=== PATIENT | female | born 1985 | race African-American/Black ===

== ENCOUNTER 2016-10-04 07:18 | Observation (INO) | payer OTHER ==
--- NOTE | ~2016-10-04 | HP ---
Unit #: [id number] #: [id number] Patient: ZELALEM BETTENCOURT [id number] [facility] [address]. [place], [place] [address] [id number] I MR#: [id number] NAME: ZELALEM BETTENCOURT ROOM: 239 Age: 31 Sex: F Admission Date: 10/04/2016 : 1985 Attending Physician: Delilah Page M.D. Primary Care Physician: No Primary Care Physician HISTORY AND PHYSICAL CHIEF COMPLAINT Blood in stool. HISTORY OF PRESENT ILLNESS The patient is a 31-year-old female with a past medical history of alcohol abuse, who presented to [facility] for evaluation of the above. The patient states that she has had a one to two-week history of blood in the stool. She states that she has had loose stool. She states that the stool has been somewhat black with blood "in the toilet and on the toilet paper." She denies any abdominal pain. No vomiting. No urinary symptoms. She has not had any fever. She reports an occasional cough. In the emergency department initial pulse and blood pressure were 92 and 131/94 respectively. She was noted to be hemoccult positive. Initial hemoglobin was 12.8. She received 1 liter of normal saline and hemoglobin had dropped to 11. She was sent to [facility] for admission. Of note, the patient has never had endoscopy. PAST MEDICAL HISTORY No hospitalizations. PAST SURGICAL HISTORY . SOCIAL HISTORY The patient lives with her mother and two kids. She states that she used to drink daily about a month ago, but now currently only drinks on the weekends. However, her last drink was yesterday and consisted of four to five shots. Blood alcohol level was 176 this morning at [facility]. She smokes a pack of cigarettes daily. She denies illicit drug use. 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 FAMILY HISTORY Notable for her mother having endstage renal disease on dialysis. She is not sure of her dad's medical issues. He is . ALLERGIES No known drug allergies. HOME MEDICATIONS None. Unit #: [id number] #: [id number] Patient: ZELALEM BETTENCOURT REVIEW OF SYSTEMS A complete review of systems is negative except as indicated in the history of present illness. PHYSICAL EXAMINATION GENERAL: The patient is an female who is awake and alert, in no acute distress. VITALS: Temperature 98.2, pulse 92, respiratory rate 18, blood pressure 131/94, oxygen saturation 100% on room air. HEENT: The head is atraumatic. Mucous membranes are moist. NECK: Supple. Trachea midline. LUNGS: Clear to auscultation bilaterally with no increased work of breathing. HEART: Regular rate and rhythm. ABDOMEN: Soft and nontender with bowel sounds present in all four quadrants. RECTAL: Hemoccult positive per emergency room documentation. EXTREMITIES: Nontender with no pedal edema. NEUROLOGIC: The patient is awake and alert. She follows commands. PSYCHIATRIC: Mood and affect are normal. The patient is cooperative. SKIN: Skin of examined areas is warm and dry. DIAGNOSTIC STUDIES IMAGING: CT of the abdomen and pelvis showed no acute abnormality. Hepatomegaly with severe diffuse hepatic steatosis was noted. LABORATORY: Urine test was negative. Initial CBC notable for hemoglobin of 12.8. Repeat hemoglobin was 11. MCV is 101.9. RDW is 16. Urinalysis notable for 1+ protein, 3+ blood with 5-10 red blood cells, 1+ bacteria, many squamous cells, trichomonas was also present. CMP notable for potassium 2.8, calcium 8.1, AST and ALT 140 and 96 respectively. INR 1. ASSESSMENT The patient is a 31-year-old female with 1. GI bleed. The patient received 40 mg of Protonix in the emergency department at [facility]. 2. Macrocytic anemia. The patient's hemoglobin dropped from 12.8 to 11 after 1 liters of normal saline. 3. Hypokalemia. The patient received a total of 80 mEq of potassium p.o. in the emergency department at [facility]. 4. Transaminitis. CT shows hepatomegaly with severe hepatic steatosis. 5. Trichomoniasis. I have not treated the patient with Flagyl due to alcohol level being 176. 6. Alcohol abuse with an alcohol level of 176. The patient's last drink was reportedly yesterday. 7. Tobacco abuse. PLAN 1. Admit to medical surgical for observation. 2. Clear liquid diet for possible endoscopy. 3. Hemoglobin and hematocrit q.6 h. 4. Iron studies, B12 and folate. 5. Protonix 40 mg IV daily. 6. Consult Dr. Traore regarding GI bleed. 7. BMP and magnesium now. 8. Potassium/magnesium protocol. Unit #: [id number] #: [id number] Patient: ZELALEM BETTENCOURT 9. Alcohol withdrawal protocol. 10. talent acquisition project manager/social work consult regarding alcohol abuse. 11. Urine tox screen. 12. Urine culture and sensitivity on urine in the lab. 13. P.r.n. Zofran. 14. SCDs for DVT prophylaxis. 15. Repeat labs in the morning. 16. Additional workup and consultants based on the above. Dictated by Eugene Watts TD: 10/04/2016 15:49 JOB #: [id number] HISTORY AND PHYSICAL Page 1 of 1 X Delilah Page MD HISTORY AND PHYSICAL
--- NOTE | ~2016-10-04 | CT2 ---
[facility] A Service of [facility] RADIOLOGY TEXT RESULTS PATIENT: ZELALEM BETTENCOURT LOCATION: [address] : [birth year] UNIT #: [id number] AGE: [address]: Delilah Page MD SEX: F ORDER DR: [id number] [address] [address] [id number] E MR#: [id number] Acc #: [id number] NAME: ZELALEM BETTENCOURT : 1985 SEX: F STUDY DATE/TIME: 10/04/2016 8:00 UNIT: SED ROOM: STUDY DESCRIPTION: CT Abd and Pelv W Cont Attending Physician: Ruben Lane M.D. Ordering Physician: Ruben Lane M.D. Primary Care Physician: No Primary Care Physician MEDICAL IMAGING REPORT This report is preliminary unless electronic signature is present. EXAM CT abdomen and pelvis with contrast. DATE 10/04/2016 HISTORY 31-year-old female with complaints of bloody stool for a couple weeks. Pain when passing stool. COMPARISON None PROCEDURE 5 mm axial images from the lung bases through the lesser trochanters after intravenous contrast administration. Enteric contrast was not administered. Sagittal and coronal reformatted images were obtained. This CT exam was performed with one or more of the following radiation dose reduction techniques: automatic exposure control, adjustment of mA and/or kV according to patient size, and iterative reconstruction. FINDINGS ABDOMEN FINDINGS: The liver is enlarged up to 21.3 cm craniocaudally. The liver is diffusely and severely steatotic. No focal liver lesions are identified. Lung bases are clear. The gallbladder, spleen, pancreas, adrenals and kidneys are within normal limits. Limited evaluation of bowel due to lack of enteric contrast. No focal bowel inflammation is seen. The appendix is normal. No free air or free fluid or pathologically enlarged lymph nodes are identified. [facility] A Service [facility] RADIOLOGY TEXT RESULTS PATIENT: ZELALEM BETTENCOURT LOCATION: [facility] [address] : 84 UNIT #: [id number] AGE: [address]: Delilah Page MD SEX: F ORDER DR: PELVIS FINDINGS: Urinary bladder and rectum appear unremarkable. Left ovarian cyst measures 1.9 cm. No free fluid. No acute osseous abnormalities are identified. IMPRESSION 1. No acute findings are seen within the abdomen or pelvis. Limited evaluation of the bowel due to lack of enteric contrast, but no focal bowel or inflammatory changes are seen. 2. 1.9 cm left ovarian cyst. 3. Normal appendix. 4. Hepatomegaly with severe diffuse hepatic steatosis. Dictated by... Susan Hernandez M.D. THIS IS AN ELECTRONICALLY VERIFIED REPORT Susan Hernandez M.D. at 10/07/2016 8:37 AM [facility]/maribell TD: 10/04/2016 10:32 JOB #: [id number] MEDICAL IMAGING REPORT Page 1 of 1
--- NOTE | ~2016-10-04 | DS ---
Unit #: [id number] #: [id number] Patient: ZELALEM BETTENCOURT [id number] [address] [address] [id number] I MR#: [id number] NAME: ZELALEM BETTENCOURT ROOM: 239 Age: 31 Sex: F Admission Date: 10/04/2016 : 1985 Discharge Date: 10/06/2016 Attending Physician: Delilah Page M.D. Primary Care Physician: Ginette Primary Care Physician DISCHARGE SUMMARY DISCHARGE DIAGNOSES 1. Anemia. 2. Gastrointestinal bleed. 3. Microcytic anemia. 4. Alcohol abuse. 5. Trichomonas vaginitis. HOSPITAL COURSE The patient is a 31-year-old female with history of alcohol abuse, admitted to the hospital with blood in stool. See the H and P for further details. The patient was seen by GI, Dr. Traore, for the blood in the stool and recommended colonoscopy on Friday. The patient received Flagyl 2 grams x1 for the trichomonas vaginitis. The patient signed out AMA from the hospital. The patient was found to be Hemoccult positive, but the patient stated that she had no more blood in the stools. The patient's hemoglobin is stable at 12.3 at the time of discharge. The patient signed out AMA for unknown reason at night. Dictated byEugene Vyas/souleymane TD: 10/08/2016 10:04 JOB #: [id number] DISCHARGE SUMMARY Page 1 of 1 X X DISCHARGE SUMMARY
[2016-10-04 07:10] LABS: BASOPHIL# 0.1 X10e3 (0-0.3); BASOPHIL% 0.8 % (0-2.5); EOSINOPHIL% 0.7 % (0.0-7.0); HEMATOCRIT 37.8 % (35.0-45.0); HEMOGLOBIN 12.8 gm/dL (12.0-16.0); LYMPHOCYTE# 2.6 X10e3 (1.0-3.5); LYMPHOCYTE% 40.9 % (17.0-45.0); MEAN CELL VOLUME 100.2 FL (83-96); MEAN CORPUSCULAR HGB CONC 33.9 g/dL (30-36); MEAN PLATELET VOLUME 8.1 FL (6.5-11.5); MONOCYTE# 0.7 X10e3 (0-1.0); NEUTROPHIL% 46.6 % (40-75); PLATELET COUNT 300 X10e3 (140-420); RED BLOOD COUNT 3.78 X10e (3.90-5.30); RED CELL DISTRIBUTION WIDTH 16.3 % (11.0-15.5); WHITE BLOOD COUNT 6.4 X10e3 (4.0-10.5)
[2016-10-04 07:12] LABS: DIFF IND NO
[2016-10-04 07:18] LABS: PROTHROMBIN TIME (PATIENT) 11.7 SECONDS (9.5-12.4)
[~2016-10-04 07:18] MED LIST: FAMOTIDINE PO; MEDROL DOSEPAK4 MG PO
[2016-10-04 07:32] LABS: ALBUMIN SERUM 3.7 g/dL (3.5-5.0); BILIRUBIN, DIRECT 0.2 mg/dL (0.0-0.2); BILIRUBIN,INDIRECT 0.3 mg/dL (0.0-0.9); BILIRUBIN,TOTAL 0.5 mg/dL (0.2-2.0); BUN/CREATININE RATIO 8.88; CALCIUM SERUM 8.1 mg/dL (8.4-10.2); CREATININE SERUM 0.9 mg/dL (0.6-1.4); GLOM FILT RATE Estimated 98.1 mL/min (>60); PROTEIN TOTAL SERUM 7.4 g/dL (6.0-8.3)
[2016-10-04 07:34] LABS: POTASSIUM 2.8 mmol/L (3.5-5.1)
[2016-10-04 10:02] LABS: BASOPHIL# 0.1 X10e3 (0-0.3); EOSINOPHIL# 0.1 X10e3 (0-0.7); HEMATOCRIT 32.9 % (35.0-45.0); LYMPHOCYTE# 2.6 X10e3 (1.0-3.5); LYMPHOCYTE% 47.4 % (17.0-45.0); MEAN CELL VOLUME 101.9 FL (83-96); MEAN CORPUSCULAR HEMOGLOBIN 34.1 PG (28-34); MEAN CORPUSCULAR HGB CONC 33.4 g/dL (30-36); MEAN PLATELET VOLUME 8.4 FL (6.5-11.5); MONOCYTE# 0.6 X10e3 (0-1.0); MONOCYTE% 11.6 % (3.0-12.0); NEUTROPHIL# 2.1 X10e3 (1.5-7.1); PLATELET COUNT 251 X10e3 (140-420); RED BLOOD COUNT 3.23 X10e (3.90-5.30); WHITE BLOOD COUNT 5.4 X10e3 (4.0-10.5)
[2016-10-04 10:03] LABS: DIFF IND NO
[2016-10-04 10:53] LABS: URINE SOURCE CLEAN CATCH
[2016-10-04 10:56] LABS: URINE APPEARANCE HAZY; URINE BILIRUBIN NEG (NEG); URINE BLOOD 3+ (NEG); URINE COLOR DK YELLOW; URINE GLUCOSE NEG (NORM); URINE KETONE NEG (NEG); URINE LEUKOCYTE ESTERASE NEG (NEG); URINE NITRATE NEG (NEG); URINE PH 6.5 (5-8); URINE PROTEIN 1+ (NEG); URINE SPECIFIC GRAVITY <=1.005 (1.003-1.035)
[2016-10-04 10:57] LABS: MICRO INDICATED? YES
[2016-10-04 11:04] LABS: CULTURE INDICATED? YES; URINE BACTERIA 1+ (NEG); URINE SQUAMOUS EPITHELIAL CELL MANY /[HPF]
[2016-10-04 11:05] LABS: URINE TRICHOMONAS PRESENT
[2016-10-04 17:03] LABS: HEMATOCRIT 40.3 % (35.0-45.0); HEMOGLOBIN 12.9 gm/dL (12.0-16.0); MEAN CELL VOLUME 102.4 FL (83-96); MEAN CORPUSCULAR HEMOGLOBIN 32.9 PG (28-34); MEAN CORPUSCULAR HGB CONC 32.1 g/dL (30-36); MEAN PLATELET VOLUME 8.7 FL (6.5-11.5); RED BLOOD COUNT 3.93 X10e (3.90-5.30); RED CELL DISTRIBUTION WIDTH 16.4 % (11.0-15.5)
[2016-10-04 17:04] LABS: WHITE BLOOD COUNT 8.5 X10e3 (4.0-10.5)
[2016-10-04 17:29] LABS: BUN/CREATININE RATIO 8.57; CALCIUM SERUM 7.5 mg/dL (8.4-10.2); CREATININE SERUM 0.7 mg/dL (0.6-1.4); GLOM FILT RATE Estimated 132.9 mL/min (>60); MAGNESIUM 1.3 mg/dL (1.6-3.0); POTASSIUM 3.5 mmol/L (3.5-5.1)
[2016-10-04 17:54] LABS: FOLATE (FOLIC ACID) 4.8 ng/mL (>5.8)
[2016-10-04 22:23] LABS: AMPHETAMINE NEG (NEG); BARBITURATES NEG (NEG); BENZODIAZEPINES NEG (NEG); COCAINE NEG (NEG); MARIJUANA POS (NEG); OPIATES POS (NEG); TRICYCLIC ANTIDEPRESSANTS NEG (NEG); U METHADONE NEG (NEG)
[2016-10-04 22:26] LABS: HEMATOCRIT 37.5 % (35.0-45.0)
[2016-10-05 05:33] LABS: HEMATOCRIT 35.3 % (35.0-45.0); HEMOGLOBIN 11.5 gm/dL (12.0-16.0); MEAN CELL VOLUME 102.2 FL (83-96); MEAN CORPUSCULAR HEMOGLOBIN 33.2 PG (28-34); MEAN CORPUSCULAR HGB CONC 32.5 g/dL (30-36); MEAN PLATELET VOLUME 8.9 FL (6.5-11.5); RED BLOOD COUNT 3.45 X10e (3.90-5.30); RED CELL DISTRIBUTION WIDTH 16.5 % (11.0-15.5); WHITE BLOOD COUNT 5.2 X10e3 (4.0-10.5)
[2016-10-05 06:42] LABS: ALBUMIN SERUM 2.9 g/dL (3.5-5.0); BILIRUBIN,TOTAL 0.6 mg/dL (0.2-2.0); CALCIUM SERUM 7.5 mg/dL (8.4-10.2); CREATININE SERUM 0.8 mg/dL (0.6-1.4); GLOM FILT RATE Estimated 113.2 mL/min (>60); MAGNESIUM 1.2 mg/dL (1.6-3.0); POTASSIUM 3.2 mmol/L (3.5-5.1); PROTEIN TOTAL SERUM 5.9 g/dL (6.0-8.3)
[2016-10-05 10:02] LABS: HEMATOCRIT 37.3 % (35.0-45.0); HEMOGLOBIN 12.3 gm/dL (12.0-16.0)
[2016-10-05 16:06] LABS: HEMATOCRIT 36.8 % (35.0-45.0)
[2016-10-05 23:08] LABS: HEMATOCRIT 38.3 % (35.0-45.0); HEMOGLOBIN 12.3 gm/dL (12.0-16.0)
== END 2016-10-06 05:01 | disposition left against medical advice (07) ==
LOC: SED 07:18 → CEDOF 13:13 → C2A 15:35
PROVIDERS: Emergency Medicine; Family Medicine
DX: D50.9 Iron deficiency anemia, unspecified (principal); K92.2 Gastrointestinal hemorrhage, unspecified; F10.10 Alcohol abuse, uncomplicated; A59.01 Trichomonal vulvovaginitis; F17.210 Nicotine dependence, cigarettes, uncomplicated; Z84.1 Family history of disorders of kidney and ureter; E87.6 Hypokalemia; R74.0 Nonspecific elevation of levels of transaminase and lactic acid dehydrogenase [LDH]; N39.0 Urinary tract infection, site not specified; N83.202 Unspecified ovarian cyst, left side; K76.0 Fatty (change of) liver, not elsewhere classified
CPT/HCPCS: 36415; 74177; 80048; 80053; 80076; 80307; 81003; 82728; 82746; 83540; 83735; 84132; 84466; 84703; 85014; 85018; 85025; 85027; 85610; 85730; 87086; 96372; 96374; 96375; 96376; 99285; C9113; G0378; G0480; J1885; J2405; J3411; J3475; J7042; Q9967

== ENCOUNTER 2016-10-29 20:01 | Emergency (ER) | payer MEDICARE, OTHER | END 2016-10-29 21:00 | disposition left against medical advice (07) | LOC: CED 20:01 | DX: R13.10 Dysphagia, unspecified (principal); F17.200 Nicotine dependence, unspecified, uncomplicated | CPT/HCPCS: 99282 ==